=== PATIENT | female | born 1985 | race Caucasian/White ===

== ENCOUNTER → 2017-08-18 | Outpatient (CLI) | payer BC | LOC: M RAD 08:01 | DX: K21.9 Gastro-esophageal reflux disease without esophagitis (principal); R13.10 Dysphagia, unspecified; K59.00 Constipation, unspecified; R68.81 Early satiety ==

== ENCOUNTER → 2019-07-18 | Outpatient (CLI) | payer BC ==
--- NOTE | 2019-07-18 12:37 | REP ---
Clinical: Anatomical evaluation. Comparison: None . Findings: Examination demonstrates a single live intrauterine in variable presentation. motion is identified by technologist. Placenta is noted right lateral and grade zero without evidence for placenta previa or abruption. Amniotic fluid volume is normal. Cervix measures 5.0 cm in length and appears closed. No evidence for nuchal cord. Gestational age by LMP 18 weeks 6 days with ARTURO 12/13/2019 . Gestational age by current measurements 19 weeks 3 days with ARTURO 12/09/2019 . FHR equals 135 beats per minute. BPD 4.5 cm 19 weeks 3 days HC 16.5 cm 19 weeks 2 days AC 15.2 cm 20 weeks 3 days FL 2.8 cm 18 weeks 4 days HL 2.9 cm 19 weeks 4 days HC/AC ratio 1.09 Estimated weight 300 grams ( 72nd percentile). Anatomical assessment demonstrates normal structures including cranium, choroid plexus, cavum, cerebellum/posterior fossa, facial features, lungs, four-chamber heart/ventricular outflow tracts, diaphragm, stomach, cord insertion/three-vessel cord, kidneys/bladder, spine, and extremities. Impression: Single live intrauterine in variable presentation demonstrating appropriate interval growth. Anatomical assessment is complete and normal. No gross abnormalities are identified. Electronically Signed by Lorenzo Spivey MD 07/18/2019 12:28 P
== END ==
LOC: M RAD 10:48
DX: Z36.3 Encounter for antenatal screening for malformations (principal); Z3A.19 19 weeks gestation of pregnancy

== ENCOUNTER 2021-02-08 15:17 | Emergency (ER) | payer BC ==
[~2021-02-08] VITALS: Ht 162.6 cm; Wt 65.5 kg
[2021-02-08] MEDS ORDERED: PREV30TA3 PO (15:28)
[2021-02-08] MEDS ORDERED: [UNRECOGNIZED DRUG - OTHER] PO (15:28)
[2021-02-08] MEDS ORDERED: PRENTAB53 PO (15:28)
[2021-02-08] MEDS ORDERED: MAGN1CAP PO (15:28)
[2021-02-08 18:30] LABS: BASO % 0.4 % (0.0-1.0); HEMOGLOBIN 13.8 g/dl (12.0-15.5); LYMPH # 1.3 10^3/uL (1.5-5.0); LYMPH % 15.2 % (24.0-44.0); MEAN CORPUSCULAR HEMOGLOBIN 28.2 pg (27.0-33.0); MEAN CORPUSCULAR HGB CONC 32.9 g/dl (32.0-36.5); MEAN CORPUSCULAR VOLUME 85.7 fl (80.0-96.0); MONO # 0.4 10^3/uL (0.0-0.8); MONO % 4.8 % (2.0-8.0); NEUTROPHILS # 6.8 10^3/uL (1.5-8.5); NEUTROPHILS % 79.4 % (36.0-66.0); PLATELET COUNT, AUTOMATED 353 10^3/uL (150-450); WHITE BLOOD COUNT 8.6 10^3/uL (4.0-10.0)
[2021-02-08 18:57] LABS: HCG, SERUM QUALITATIVE NEGATIVE (NEGATIVE)
[2021-02-08 19:00] LABS: ALBUMIN 3.5 GM/DL (3.2-5.2); ALT/SGPT 151 U/L (12-78); BILIRUBIN,DIRECT 0.1 MG/DL (0.0-0.2); BILIRUBIN,TOTAL 0.4 MG/DL (0.2-1.0); BLOOD UREA NITROGEN 10 MG/DL (7-18); CARBON DIOXIDE LEVEL 27 MEQ/L (21-32); CHLORIDE LEVEL 107 MEQ/L (98-107); CREATININE FOR GFR 0.64 MG/DL (0.55-1.30); GLOMERULAR FILTRATION RATE > 60.0 (>60); GLUCOSE, FASTING 82 MG/DL (70-100); LIPASE 75 U/L (73-393); POTASSIUM SERUM 4.2 MEQ/L (3.5-5.1); SODIUM LEVEL 142 MEQ/L (136-145); TOTAL PROTEIN 7.5 GM/DL (6.4-8.2)
[2021-02-08] MEDS ORDERED: ACETAMINOPHEN 325 MG TAB PO ONE (20:15)
[2021-02-08] MEDS ORDERED: NS 1,000 ML IV ONE (20:20)
[2021-02-08] MEDS ORDERED: ISOVUE-370 76% 100ML VIAL As Ordered ONE (20:24)
[2021-02-08] MEDS ORDERED: ONDANSETRON 4MG/2ML VIAL IV ONE (20:35)
[2021-02-08] MEDS ORDERED: diphenhydrAMINE 50MG/ML VIAL (J1200) IV ONE (20:35)
--- NOTE | 2021-02-08 21:44 | REPVR ---
PROCEDURE INFORMATION: Exam: US Abdomen, Limited; Right Upper Quadrant Exam date and time: 02/08/2021 8:42 PM Age: 35 years old Clinical indication: Abdominal pain; Epigastric; Additional info: Ruq pain TECHNIQUE: Imaging protocol: US abdomen. Real time ultrasound with image documentation. Limited exam focused on the right upper quadrant. COMPARISON: US OBS RENATO GEST 07/18/2019 11:10 AM FINDINGS: Liver: There is a 1.3 cm round echogenic structure within the right lobe of the liver and probably a hemangioma. To prove this is a hemangioma I would recommend a CT with IV contrast done is a dynamic study. Gallbladder: Normal appearing gallbladder with no evidence of gallstones. Negative Lagunas sign. Common bile duct: There is no evidence of intrahepatic biliary dilatation. Common bile duct measures 4 mm. Pancreas: Normal size pancreas. Right kidney: The right kidney measures 11.3 cm in length and there is no evidence of hydronephrosis. IMPRESSION: 1. Normal appearing gallbladder. 2. 1.3 cm round echogenic focus within the right lobe of the liver probably a hemangioma. Recommend CT scan with contrast utilizing a dynamic technique to help confirm that this is a hemangioma. Electronically signed by: Travis Leyva On 02/08/2021 21:43:29 PM
--- NOTE | 2021-02-08 22:39 | REPVR ---
PROCEDURE INFORMATION: Exam: CT Abdomen And Pelvis With Contrast Exam date and time: 02/08/2021 9:01 PM Age: 35 years old Clinical indication: Other: Abd pain; Additional info: Abdominal pain TECHNIQUE: Imaging protocol: Computed tomography of the abdomen and pelvis with contrast. Radiation optimization: All CT scans at this facility use at least one of these dose optimization techniques: automated exposure control; mA and/or kV adjustment per patient size (includes targeted exams where dose is matched to clinical indication); or iterative reconstruction. Contrast material: ISOVUE 370; Contrast volume: 100 ml; Contrast route: INTRAVENOUS (IV); COMPARISON: GALLBLADDER US 02/08/2021 8:26 PM FINDINGS: Lungs: Clear lung bases Heart: The heart is normal in size and there is no pericardial effusion. Liver: There is a small cyst measuring 1 cm of the left lobe of the liver. 1.3 cm low-density lesion of the right lobe of the liver, also seen on the recent ultrasound probably a hemangioma. I would recommend however to have a follow-up CT scan in 6 months for re-evaluation of this and to document stability. This is uniformly echogenic on the ultrasound suggestive of hemangioma however there is a single vessel identified. This is difficult to completely characterize on CT since it is very small. There is no evidence of pneumoperitoneum. Gallbladder and bile ducts: Normal appearing gallbladder. Normal common bile duct. Pancreas: Normal appearing pancreas. Spleen: Normal spleen. Adrenal glands: Normal adrenal glands. Kidneys and ureters: There is enhancement of the kidneys. Small cyst upper pole of the right kidney. Stomach and bowel: The cecum is in the right pelvis. Normal appearing small bowel. Appendix: There is no evidence of inflammation in the region of the cecum or the appendix. Intraperitoneal space: Small amount of free fluid in the pelvis probably the result of ovulation. Vasculature: The aorta appears normal in size and intact. There is opacification of the SMV the and the celiac artery. There is opacification of the renal arteries. Lymph nodes: The there is no evidence of lymphadenopathy. Urinary bladder: Normal urinary bladder. Normal urinary bladder. Reproductive: Retroverted uterus. 2 cm follicular cyst right ovary. Small follicular cyst left ovary. Bones/joints: There is round hemangioma of L2 vertebral body. Soft tissues: There is no evidence of soft tissue abnormality. IMPRESSION: 1.3 cm round low-density lesion right lobe of the liver probably a hemangioma. However, to verify this recommend follow-up CT scan in 6 months for re-evaluation and to document stability. COMMENTS: Consistent with the [employer]'s Incidental Findings Committee white paper (J Am Yelitza Radiol 2018): Any incidental renal lesion less than 1 cm or classified as too small to characterize, or any incidental cystic renal lesion characterized as simple-appearing, is likely benign. No follow-up imaging is recommended for these lesions per consensus recommendations based on imaging criteria. Electronically signed by: Travis Leyva On 02/08/2021 22:38:48 PM
[2021-02-09 00:53] LABS: RSV AMPLIFICATION NEGATIVE (NEGATIVE)
[2021-02-09 01:38] VITALS: BP 111/64
--- NOTE | 2021-02-11 13:41 | ED PDOC ---
Post-Departure Follow-Up dr bill faxed formal report of gb us for fu Alexandra Chun MD Feb 11, 2021 13:41
== END 2021-02-09 01:40 | disposition home or self-care (01) ==
LOC: M ED 15:17
DX: R50.9 Fever, unspecified (principal); R51.9 Headache, unspecified; E86.0 Dehydration; R94.5 Abnormal results of liver function studies; B34.9 Viral infection, unspecified
CPT/HCPCS: 74177; 76705; 80048; 80076; 81001; 83690; 84703; 85025; 87631; 96361; 96374; 96375; 99284; J1200; J2405; Q9967

== ENCOUNTER → 2021-10-28 | Outpatient (CLI) | payer BC ==
[~2021-10-28] MED LIST: MAGN1CAP PO; PRENTAB53 PO; PREV30TA3 PO; [UNRECOGNIZED DRUG - OTHER] PO
== END ==
LOC: M RAD 12:37
PROVIDERS: ATTEND Specialist
DX: Z36.89 Encounter for other specified antenatal screening (principal); Z3A.20 20 weeks gestation of pregnancy; O32.2XX0 Maternal care for transverse and oblique lie, not applicable or unspecified

== ENCOUNTER → 2024-06-29 | Outpatient (CLI) | payer BC | LOC: M RAD 13:37 | DX: Z32.01 Encounter for pregnancy test, result positive (principal); Z3A.01 Less than 8 weeks gestation of pregnancy ==

== ENCOUNTER → 2024-07-18 | Outpatient (CLI) | payer BC | LOC: M RAD 10:12 | PROVIDERS: ATTEND Obstetrics & Gynecology | DX: Z34.81 Encounter for supervision of other normal pregnancy, first trimester (principal); Z3A.08 8 weeks gestation of pregnancy ==

== ENCOUNTER → 2025-05-25 | Outpatient (CLI) | payer BC | LOC: M RAD 09:40 | PROVIDERS: ATTEND Student in an Organized Health Care Education/Training Program | DX: Z36.89 Encounter for other specified antenatal screening (principal) ==